=== PATIENT | female | born 1950 | race Caucasian/White ===

== ENCOUNTER 2018-01-08 12:46 | Emergency (ER) | payer MEDICARE, OTHER ==
[2018-01-08 13:51] VITALS: BP 136/73
--- NOTE | 2018-01-08 14:17 | UC ---
Skin Complaint HPI - HPI Summary HPI Summary: 67-year-old woman comes here today with a complaint of redness pain and swelling on the right cheek. It started started out as a pimple several days ago. The patient tried to pop it and it's gotten worse and spread since thEN. No fevers or chills. Patient's tried some topical antibiotic ointment which did not help. No complaint of dental pain or runny nose. No pain with movement of the eyes. - History of Current Complaint Chief Complaint: UCSkin Time Seen by Provider: 01/08/18 14:10 Stated Complaint: SKIN COMPLAINT RIGHT CHEEK Pain Intensity: 5 - Allergy/Home Medications Allergies/Adverse Reactions: Allergies Allergy/AdvReac Type Severity Reaction Status Date / Time No Known Allergies Allergy Verified 01/08/18 13:44 Home Medications: Home Medications Atorvastatin* [Lipitor*] 10 mg PO 1700 01/08/18 [History Confirmed 01/08/18] Review of Systems Constitutional: Negative Skin: Other - See history of present illness Eyes: Negative ENT: Negative Respiratory: Negative Cardiovascular: Negative Motor: Negative Neurovascular: Negative Musculoskeletal: Negative Neurological: Negative Is Patient Immunocompromised?: No All Other Systems Reviewed And Are Negative: Yes PMH/Surg Hx/FS Hx/Imm Hx Endocrine History: Diabetes, Hypothyroidism - Surgical History Surgical History: None - Family History Known Family History: Negative: Cardiac Disease, Diabetes - Social History Alcohol Use: Rare Alcohol Amount: holidays Substance Use Type: None Smoking Status (MU): Never Smoked Tobacco Household Exposure Type: Cigarettes Physical Exam Triage Information Reviewed: Yes Appearance: Well-Appearing, No Pain Distress, Well-Nourished Vital Signs: Initial Vital Signs Temp 97.7 F 01/08/18 13:39 Pulse 68 01/08/18 13:39 Resp 18 01/08/18 13:39 BP 136/73 01/08/18 13:39 Pulse Ox 99 01/08/18 13:39 Vital Signs Reviewed: Yes Eye Exam: Normal Eyes: Positive: Conjunctiva Clear, Other: - No pain with movement of the eyes ENT: Positive: Pharynx normal. Negative: Nasal congestion, Nasal drainage Neck exam: Normal Neck: Positive: Supple Respiratory: Positive: Lungs clear, Normal breath sounds, No respiratory distress Cardiovascular: Positive: RRR Musculoskeletal Exam: Normal Musculoskeletal: Positive: Strength Intact, ROM Intact Neurological Exam: Normal Neurological: Positive: Alert Psychological Exam: Normal Skin: Positive: Other - The right cheek has an erythematous area 3 cm diameter which is slightly fIRM and tender to palpation. There is no fluctuance that I can find to I&D. There is a harden in the center. No drainage at this time. The erythema does not spread to the eye. Course/Dx - Course Course Of Treatment: The area appears to be abscess secondary to an acne folliculitis. The fluctuance is not prominent enough to I&D. The erythema does not spread to the EYE. We discussed getting rechecked if there is any spread of the infection or if there is any pain with eye movement or fevers or she feels ill. - Diagnoses Provider Diagnoses: RIGHT FACE ABSCESS AND CELLULITIS Discharge - Sign-Out/Discharge Documenting (check all that apply): Patient Departure All imaging exams completed and their final reports reviewed: No Studies - Discharge Plan Condition: Stable Disposition: HOME Prescriptions: Amoxicillin/Clavulanate TAB* [Augmentin TAB 875*] 875 mg PO BID #20 tab Mupirocin 1 applic TOPICAL TID #22 gm Patient Education Materials: Cellulitis (ED), Abscess (ED) Referrals: Naila Soriano MD [Primary Care Provider] - Additional Instructions: FOLLOW UP WITH YOUR DOCTOR. GET RECHECKED FOR ANY WORSENING OF YOUR CONDITION; SPREAD OF INFECTION, PAIN WITH MOVING YOUR EYE, FEVER, YOU FEEL ILL OR QUESTIONS OR CONCERNS. - Billing Disposition and Condition Condition: STABLE Disposition: Home - Attestation Statements Document Initiated by Shawnibe: No
== END 2018-01-08 14:31 | disposition home or self-care (01) ==
LOC: UCCORT 12:46
DX: L02.01 Cutaneous abscess of face (principal); L03.211 Cellulitis of face; E11.9 Type 2 diabetes mellitus without complications
CPT/HCPCS: 99212; G0463

== ENCOUNTER 2018-05-29 11:16 | Emergency (ER) | payer MEDICARE, OTHER ==
[2018-05-29 11:30] VITALS: BP 145/88
--- NOTE | 2018-05-29 12:08 | UC ---
Back Pain HPI - HPI Summary HPI Summary: 68 y/o female presents to the urgent care c/o bent over at computer desk w2 days ago and arrives with back pain - History of Current Complaint Chief Complaint: UCBackPain Stated Complaint: BACK PAIN Time Seen by Provider: 05/29/18 11:58 Hx Obtained From: Patient ?: No - Menopausal Onset/Duration: Sudden Onset, Lasting Days - 2 days, Still Present, Worse Since - today Timing: Lasting Days - 2 days Severity Initially: Moderate Severity Currently: Moderate Pain Intensity: 8 Pain Scale Used: 0-10 Numeric Back Pain: Is Discrete @ - RT side of mid back Character: Dull, Spasmodic Aggravating Factor(s): Movement, Lifting, Bending Associated Signs And Symptoms: Positive: Negative. Negative: Swelling, Redness , Bruising, Fever, Weakness, Numbness, Tingling, Abdominal Pain, Flank Pain, Bladder Incontinence, Bowel Incontinence, Weight Loss, Pain with Weight Bearing - Risk Factors AAA Risk Factors: Negative TAD Risk Factors: Negative Cauda Equina Risk Factors: Negative Epidural Abscess Risk Factors: Negative - Allergies/Home Medications Allergies/Adverse Reactions: Allergies Allergy/AdvReac Type Severity Reaction Status Date / Time No Known Allergies Allergy Verified 05/29/18 11:30 PMH/Surg Hx/FS Hx/Imm Hx Previously Healthy: Yes Endocrine History: Diabetes, Hypothyroidism, Dyslipidemia GI/ History: Gastroesophageal Reflux - Surgical History Surgical History: None - Family History Known Family History: Negative: Cardiac Disease, Diabetes Family History: hypothyrodism - Social History Occupation: Retired Lives: With Family Alcohol Use: Rare Alcohol Amount: holidays Substance Use Type: None Smoking Status (MU): Never Smoked Tobacco Household Exposure Type: Cigarettes Review of Systems All Other Systems Reviewed And Are Negative: Yes Constitutional: Positive: Negative Skin: Positive: Negative Eyes: Positive: Negative ENT: Positive: Negative Respiratory: Positive: Negative Cardiovascular: Positive: Negative Genitourinary: Positive: Frequency Motor: Positive: Negative Neurovascular: Positive: Negative Musculoskeletal: Positive: Decreased ROM - mid back on lateral bending or upon standing, Other: - RT side of mid back pain s/p pulling a muscle while bending to scrap picker something Neurological: Positive: Negative Psychological: Positive: Negative Is Patient Immunocompromised?: No Physical Exam - Summary Physical Exam Summary: Vital Signs Reviewed: Yes Appearance: Well-Appearing, Well-Nourished, female sitting in the examining table w/o any apparent distress. Eyes: Positive: Conjunctiva Clear - PERRLA, EOMI. ENT: Positive: Normal ENT inspection, Hearing grossly normal, Pharynx normal, TMs normal, Uvula midline Neck: Positive: Supple, Nontender, No Lymphadenopathy Respiratory: Positive: Chest non-tender, Lungs clear, Normal breath sounds, No respiratory distress Cardiovascular: Positive: RRR, No Murmur, Pulses Normal, Brisk Capillary Refill Abdomen Description: Positive: Nontender, No Organomegaly, Soft. Negative: CVA Tenderness (R), CVA Tenderness (L) Bowel Sounds: Positive: Present Musculoskeletal: Positive: Strength Intact, BACK: Patient walked into the urgent care room with symmetric ambulation, No signs of limping, antalgic, able to bear weight. No signs of trauma, No masses palpated. Point tenderness at RT lateral side paraspinal muscles of upper back the level of the T11-12 w/ spasm , No CVAT, no flank ecchymosis . No sacroiliac notch tenderness, No saddle anesthesia.ROM: limited due to pain, Straight Leg Raise: negative. Patellar reflexes: brisk, symmetric Muscle strength lower extremities. Dorsiflexion/ plantar flexion of ankles. Heel/ toe walk. Lower extremities: Femoral, popliteal , posterior tibial, and dorsalis pedis pulses WNL. Pt refuse rectal exam Neurological: Positive: Alert, Muscle Tone Normal Psychological Exam: Normal Skin Exam: Normal Triage Information Reviewed: Yes Vital Signs: Initial Vital Signs Temp 98.1 F 05/29/18 11:27 Pulse 68 05/29/18 11:27 Resp 16 05/29/18 11:27 BP 145/88 05/29/18 11:27 Pulse Ox 98 05/29/18 11:27 Back Pain Course/Dx - Course Course Of Treatment: PE: Point tenderness at RT lateral side paraspinal muscles of upper back the level of the T11-12 w/ spasm on examination. UA ordered: . Lumbosacral X-ray ordered, Impression: No acute osseous injury observed. Naproxen PO ordered at the clinic. Given by nurse. Pt tolerated well medication pain decrease. Pt Rx Naproxen PO, flexeril PO and given a PT referral. Patient was instructed to the f/u wit orthopedic in 1 week if symptoms do not improve or worsen. Patient understands and agrees. Patient is able to ambulate freely w/o aid or limp. Plan of care was discussed with the patient and patient understands and agrees. All questions were answered at patient satisfaction. Pt left clinic hemodynamically stable. - Differential Dx/Diagnosis Differential Diagnosis/HQI/PQRI: Arthritis, Herniated Disc, Renal Colic, Strain , Sprain, Other - muscle spasm, UTI Discharge - Sign-Out/Discharge Documenting (check all that apply): Patient Departure - d/c home All imaging exams completed and their final reports reviewed: No Studies - Discharge Plan Condition: Stable Disposition: HOME Prescriptions: Ciprofloxacin TAB* [Cipro 500 MG TAB*] 500 mg PO BID #14 tab Cyclobenzaprine TAB* [Flexeril 10 MG TAB*] 10 mg PO TID PRN #21 tab PRN Reason: Spasms - Back Naproxen TAB* [Naprosyn 250 mg TAB*] 250 mg PO Q8H PRN #30 tab PRN Reason: back pain Patient Education Materials: Urinary Tract Infection in Women (ED), Muscle Spasm (ED), Thoracic Back Strain (ED) Referrals: Felton Sarah MD [Medical Doctor] - 1 Week Naila Soriano MD [Primary Care Provider] - Additional Instructions: 1- Please take Naproxen PO as directed after meals for pain. 2- Take Flexeril PO as directed for muscle spasm. Please do not drive while taking the medication. 3- Wear a back support. Avoid strenuous exercise of heavy lifting. 4- Please follow up with Orthopedic Dr Sarah or your PCP in 1 week if not improvement of symptoms, for further management. 5-Take ciprofloxacin PO as directed to alleviate urinary symptoms. Increase increase fluid intake. drink cranberry juice. 6-Urine sent for culture if any abnormality, you will be notified for further treatment. 7-If symptoms do not improve please f/u with your PCP for further management 8- Your BP is elevated today. please decrease salt in your diet, monitor BP and if it continues to be elevated please f/u with your PCP for further management. - Billing Disposition and Condition Condition: STABLE Disposition: Home
--- NOTE | 2018-05-31 16:22 | UC ---
- Progress Note Progress Note: 05/31/2018 Urine culture: no growth Pt Rx Ciprofloxacin PO Please call back patient and advised to stop antibiotic since no growth. Thank you Marlen Scott PA-C Course/Dx - Diagnoses Provider Diagnoses: UTI (urinary tract infection), Low back strain, Muscle spasm Discharge - Sign-Out/Discharge Documenting (check all that apply): Patient Departure - D/c home All imaging exams completed and their final reports reviewed: No Studies - Discharge Plan Condition: Stable Disposition: HOME Prescriptions: Ciprofloxacin TAB* [Cipro 500 MG TAB*] 500 mg PO BID #14 tab Cyclobenzaprine TAB* [Flexeril 10 MG TAB*] 10 mg PO TID PRN #21 tab PRN Reason: Spasms - Back Naproxen TAB* [Naprosyn 250 mg TAB*] 250 mg PO Q8H PRN #30 tab PRN Reason: back pain Patient Education Materials: Urinary Tract Infection in Women (ED), Muscle Spasm (ED), Thoracic Back Strain (ED) Referrals: Felton Sarah MD [Medical Doctor] - 1 Week Naila Soriano MD [Primary Care Provider] - Additional Instructions: 1- Please take Naproxen PO as directed after meals for pain. 2- Take Flexeril PO as directed for muscle spasm. Please do not drive while taking the medication. 3- Wear a back support. Avoid strenuous exercise of heavy lifting. 4- Please follow up with Orthopedic Dr Sarah or your PCP in 1 week if not improvement of symptoms, for further management. 5-Take ciprofloxacin PO as directed to alleviate urinary symptoms. Increase increase fluid intake. drink cranberry juice. 6-Urine sent for culture if any abnormality, you will be notified for further treatment. 7-If symptoms do not improve please f/u with your PCP for further management 8- Your BP is elevated today. please decrease salt in your diet, monitor BP and if it continues to be elevated please f/u with your PCP for further management. - Billing Disposition and Condition Condition: STABLE Disposition: Home
== END 2018-05-29 13:25 | disposition home or self-care (01) ==
LOC: UCEAST 11:16
DX: M54.9 Dorsalgia, unspecified (principal); E11.9 Type 2 diabetes mellitus without complications; Z77.22 Contact with and (suspected) exposure to environmental tobacco smoke (acute) (chronic)
CPT/HCPCS: 81003; 87086; 99212; G0463